=== PATIENT | male | born 1935 | race Caucasian/White ===

== ENCOUNTER → 2017-09-11 | Outpatient (CLI) | payer MEDICARE ==
[2017-09-11 13:33] VITALS: BP 135/88
== END | disposition home or self-care (01) ==
LOC: WHH 13:10
PROVIDERS: ATTEND Podiatrist Foot & Ankle Surgery
DX: L89.622 Pressure ulcer of left heel, stage 2 (principal); L97.421 Non-pressure chronic ulcer of left heel and midfoot limited to breakdown of skin; G62.9 Polyneuropathy, unspecified; G95.89 Other specified diseases of spinal cord; M47.892 Other spondylosis, cervical region
CPT/HCPCS: A4450; A4649; G0463

== ENCOUNTER → 2017-09-18 | Outpatient (CLI) | payer MEDICARE ==
[2017-09-18 14:50] VITALS: BP 129/81
== END | disposition home or self-care (01) ==
LOC: WHH 10:30
PROVIDERS: ATTEND Podiatrist Foot & Ankle Surgery
DX: L89.622 Pressure ulcer of left heel, stage 2 (principal); L97.421 Non-pressure chronic ulcer of left heel and midfoot limited to breakdown of skin; G62.9 Polyneuropathy, unspecified; M48.04 Spinal stenosis, thoracic region
CPT/HCPCS: 97597; A6022

== ENCOUNTER → 2017-09-26 | Outpatient (CLI) | payer MEDICARE ==
[2017-09-26 10:29] VITALS: BP 151/87
== END | disposition home or self-care (01) ==
LOC: WHH 09:30
PROVIDERS: ATTEND Podiatrist Foot & Ankle Surgery
DX: L89.622 Pressure ulcer of left heel, stage 2 (principal); L97.421 Non-pressure chronic ulcer of left heel and midfoot limited to breakdown of skin; G62.9 Polyneuropathy, unspecified; G95.89 Other specified diseases of spinal cord
CPT/HCPCS: A6022; G0463

== ENCOUNTER → 2017-10-03 | Outpatient (CLI) | payer MEDICARE ==
[2017-10-03 10:03] VITALS: BP 128/80
== END | disposition home or self-care (01) ==
LOC: WHH 09:45
PROVIDERS: ATTEND Podiatrist Foot & Ankle Surgery
DX: L89.622 Pressure ulcer of left heel, stage 2 (principal); G62.9 Polyneuropathy, unspecified; G95.89 Other specified diseases of spinal cord
CPT/HCPCS: A6022; G0463

== ENCOUNTER → 2017-10-09 | Outpatient (CLI) | payer MEDICARE ==
[2017-10-09 14:21] VITALS: BP 126/94
== END | disposition home or self-care (01) ==
LOC: WHH 10:00
PROVIDERS: ATTEND Podiatrist Foot & Ankle Surgery
DX: L89.622 Pressure ulcer of left heel, stage 2 (principal); G62.9 Polyneuropathy, unspecified
CPT/HCPCS: 97597; A6022

== ENCOUNTER → 2017-10-17 | Outpatient (CLI) | payer MEDICARE ==
[2017-10-17 13:38] VITALS: BP 113/72
== END | disposition home or self-care (01) ==
LOC: WHH 09:45
PROVIDERS: ATTEND Podiatrist Foot & Ankle Surgery
DX: L89.622 Pressure ulcer of left heel, stage 2 (principal); G62.9 Polyneuropathy, unspecified; G95.89 Other specified diseases of spinal cord
CPT/HCPCS: A6021; G0463

== ENCOUNTER → 2017-10-23 | Outpatient (CLI) | payer MEDICARE ==
[2017-10-23 14:26] VITALS: BP 130/94
== END | disposition home or self-care (01) ==
LOC: WHH 09:45
PROVIDERS: ATTEND Podiatrist Foot & Ankle Surgery
DX: L89.622 Pressure ulcer of left heel, stage 2 (principal); G62.9 Polyneuropathy, unspecified; G95.89 Other specified diseases of spinal cord
CPT/HCPCS: 11042; A6022

== ENCOUNTER → 2017-10-31 | Outpatient (CLI) | payer MEDICARE ==
[2017-10-31 13:32] VITALS: BP 131/84
== END | disposition home or self-care (01) ==
LOC: WHH 10:00
PROVIDERS: ATTEND Podiatrist Foot & Ankle Surgery
DX: L89.622 Pressure ulcer of left heel, stage 2 (principal); G62.9 Polyneuropathy, unspecified; G95.89 Other specified diseases of spinal cord
CPT/HCPCS: A6022; A6213; G0463

== ENCOUNTER → 2017-11-06 | Outpatient (CLI) | payer MEDICARE ==
[2017-11-06 13:25] VITALS: BP 133/85
== END | disposition home or self-care (01) ==
LOC: WHH 10:00
PROVIDERS: ATTEND Podiatrist Foot & Ankle Surgery
DX: L89.622 Pressure ulcer of left heel, stage 2 (principal); G62.9 Polyneuropathy, unspecified; G95.89 Other specified diseases of spinal cord
CPT/HCPCS: A6207; G0463

== ENCOUNTER → 2017-11-20 | Outpatient (CLI) | payer MEDICARE ==
[2017-11-20 13:35] VITALS: BP 133/85
== END | disposition home or self-care (01) ==
LOC: WHH 09:45
PROVIDERS: ATTEND Podiatrist Foot & Ankle Surgery
DX: L89.622 Pressure ulcer of left heel, stage 2 (principal); G62.9 Polyneuropathy, unspecified; G95.89 Other specified diseases of spinal cord
CPT/HCPCS: A6213; G0463

== ENCOUNTER 2017-12-04 09:45 | Outpatient (CLI) | payer MEDICARE ==
[2017-12-04 14:51] VITALS: BP 149/96
== END 2017-12-04 17:00 | disposition home or self-care (01) ==
LOC: WHH 09:45
PROVIDERS: ATTEND Podiatrist Foot & Ankle Surgery
DX: L89.622 Pressure ulcer of left heel, stage 2 (principal); G62.9 Polyneuropathy, unspecified
CPT/HCPCS: G0463